=== PATIENT | male | born 1970 | race Caucasian/White ===

== ENCOUNTER 2022-07-27 13:25 | Day surgery (SDC) | payer OTHER, SELFPAY ==
[2022-07-27] VITALS (8 sets, daily range): BP systolic 158–196; BP diastolic 96–108; PULSE 68–78; RESP 13–26; TEMP 36.2–36.8; O2SAT 93–98; BMI 35.9
--- NOTE | 2022-07-27 | PATH_ITS ---
[facility] Accession Number: [id number] No. of containers..01 Tissue . 01 Material submitted: . colon - ASCENDING COLON POLYP . 01 Diagnosis: Ascending Colon, Polyp, Biopsy: Tubular adenoma. [facility] 07/30/2022 1120 Local . 01 Electronically signed: . Yesi Nichole MD, Pathologist NPI- [id number] . 01 Gross description: . ASCENDING COLON POLYP: Received in formalin is 1 fragment(s) of corona, soft tissue measuring 0.3 x 0.2 x 0.2 cm submitted entirely in 1 cassette(s) /[facility] 07/28/20222033 Local . 01 Pathologist provided ICD-10: D12.2 . 01 CPT . 189213 Specimen Comment: A courtesy copy of this report has been sent to [phone] Performed at: 01 [facility] [address] [place] [address], [place], [place] [id number] MD Alli Diana MD Phone: [phone]
[2022-07-27] MEDS: LACTATED RINGERS 1,000 ML 200 ML IV (14:08)
[2022-07-27] MEDS: MIDAZOLAM 2 MG/2 ML VIAL IV (14:39)
--- NOTE | 2022-07-27 14:42 | P.HP_ITS ---
History of Present Illness History of Present Illness Date Patient Seen: 07/27/22 Time Patient Seen: 14:42 Chief complaint: [facility] [place] Narrative: The patient presents for colorectal screening. They have never had any previous examination for such. No personal or family history of colon cancer. On further history denies any recent gastrointestinal symptoms. No nausea, vomiting, abdominal pain, loss of appetite, unexplained weight loss, change in bowel habits, or blood per rectum. [facility], [facility] Social History household members: spouse Smoking Status: Never smoker alcohol intake: current Meds Home Medications and Allergies Home Medications Medication Instructions Recorded Confirmed Type sodium,potassium,mag sulfates 17.5 See Rx Instructions PO .COMPLEX 07/07/22 Rx gram-3.13 gram-1.6 gram oral soln #354 mL (Suprep Bowel Prep Kit) Allergies Allergy/AdvReac Type Severity Reaction Status Date / Time No Known Drug Allergies Allergy Verified 07/27/22 14:36 Exam Vital Signs (past 8 hours): - 07/27/22 13:57 07/27/22 14:10 07/27/22 14:14 Temperature 98.3 F Pulse Rate 76 71 68 Respiratory Rate 21 Blood Pressure 196/99 H 174/104 H 182/102 H Pulse Oximetry 98 Oxygen Delivery Method Room Air 07/27/22 14:28 Temperature Pulse Rate 70 Respiratory Rate Blood Pressure 162/96 H Pulse Oximetry Oxygen Delivery Method Oxygen Delivery Method Room Air Narrative Exam Narrative: General adult man alert oriented no acute distress Abdomen soft nontender nondistended Assessment & Plan Assessment & Plan narrative: The patient requires colorectal screening and colonoscopy is recommended. Technical details were discussed. Risks, benefits, alternatives explained. Risks including but not limited to myocardial infarction, aspiration, bleeding, pain, missed lesion, incomplete examination, need for further radiographic studies, colonic perforation, and need for major abdominal surgery were discussed. All questions were answered to their satisfaction, and they are in agreement with this plan.
--- NOTE | 2022-07-27 14:46 | PM.OP.COLON ---
Operative Date/Time/Diagnoses Date of procedure: 07/27/22 Time of procedure: 14:46 Pre-op diagnosis: Colorectal screening Post-op diagnosis: other (Colonic polyp x1) Procedure & Clinicians Study performed: Colonoscopy Same procedure as scheduled: Yes Indications: Colorectal screening Surgeon: Jamarcus Cha Procedure Notes Procedure in detail: The history and physical was performed/updated and the patient is ASA class is 2. The procedure was discussed in detail with the patient. Potential risks complications including infection, bleeding, missed diagnosis, perforation, need for surgery, and were explained. Their questions were answered and informed consent was obtained. Patient was brought to the procedure room and placed standard monitoring equipment. The patient's vital signs were monitored continuously throughout the entire procedure. Prior to starting time-out was performed. The patient was placed in the left lateral recumbent position. Procedural sedation was administered by anesthesia. Examination began with a thorough inspection of the perianal area there was no evidence of fissures, fistulae, external hemorrhoids or cutaneous malignancy. The colonoscopy scope was then placed into the anal canal and was advanced to the cecum, which was identified by the ileocecal valve, the appendiceal orifice and the confluence of the taenia. The scope was then slowly withdrawn examining colon thoroughly in all directions, irrigating it of any residual stool. Within the ascending colon there was a 7 mm polyp which was removed with cold snare. The descending colon and sigmoid colon were notable for moderate diverticulosis. Retroflexion within the rectum demonstrates internal hemorrhoids. The patient tolerated the procedure well. They will be discharged once criteria are met. The prep was of good/excellent quality. The withdrawl time was 7minutes. Specimen(s): other (Ascending colonic polyp) Impression: Colonic polyp x1 Post-procedure Recommendations: High fiber diet Plan for aftercare: Follow-up is dependent on pathology findings Disposition: same day surgery
--- NOTE | 2022-07-27 15:28 | SUR.PHASEII ---
Patient to f/u with PCP regarding elevated BP and sleep apnea per Dr. Pena.
== END 2022-07-27 15:52 | disposition home or self-care (01) ==
PROVIDERS: PCP Family Medicine; Referring Provider Surgery; Visit Provider Surgery
PROC: 0DJD8ZZ Inspection of Lower Intestinal Tract, Via Natural or Artificial Opening Endoscopic (ICD-10-PCS; CPT 45378; principal; 2022-07-27 14:30)
DX: Z12.11 Encounter for screening for malignant neoplasm of colon (principal); D12.2 Benign neoplasm of ascending colon; K57.30 Diverticulosis of large intestine without perforation or abscess without bleeding
CPT/HCPCS: 45385; J2250; J2704; J3010

== ENCOUNTER → 2022-08-30 15:09 | Outpatient (CLI) | payer OTHER, SELFPAY ==
[2022-08-30 16:34] LABS: Prostate Specific Antigen 1.06 ng/mL (0.10-4.00)
== END ==
PROVIDERS: PCP Family Medicine; Referring Provider Specialist; Visit Provider Specialist
DX: N40.1 Benign prostatic hyperplasia with lower urinary tract symptoms (principal); N13.8 Other obstructive and reflux uropathy
CPT/HCPCS: 36415; 51798; 81002; 84153